=== PATIENT | female | born 1965 | race Caucasian/White ===

== ENCOUNTER 2023-08-25 05:34 | Emergency (ER) | payer MEDICARE, MEDICAID, SELFPAY ==
[2023-08-25 05:37] VITALS: BP 156/87; PULSE 89; RESP 16; TEMP 36.1; O2SAT 96; BMI 27.5
--- NOTE | 2023-08-25 05:53 | ED.EYEPROB ---
HPI - Eye Problem General Chief complaint: Eye Problems Stated complaint: something in right eye Time Seen by Provider: 08/25/23 05:52 History of Present Illness HPI Narrative: Patient is a 58-year-old woman up-to-date on her tetanus shot who comes in today after waking up and feeling a foreign body sensation in her right eye. She otherwise been sleeping fine and has not done any activities that would put her I and risk. She has no drainage or discharge. Her ocular acuity is normal. She has had no fevers no chills no night sweats no drainage no discharge. No surrounding swelling around her right eye. Related Data Allergies Allergy/AdvReac Type Severity Reaction Status Date / Time amoxicillin [From Augmentin] Allergy Unknown Verified 08/25/23 05:41 clavulanic acid Allergy Unknown Verified 08/25/23 05:41 [From Augmentin] Review of Systems Status of ROS: Reports: 10 or more systems reviewed and unremarkable except as noted in History and below PFSH PFS Social History Smoking Status: Never smoker How often do you have a drink containing alcohol: never AUDIT-C Alcohol total score: 0 Non-prescribed substance use: denies use service: No Exam Narrative: Exam Narrative: EXAM GENERAL: Patient appears comfortable and well. EYES: No scleral icterus. Mild injection noted of the right eye no other significant findings. Extraocular movements are intact PERRLA THYROID: no thyroid nodules or thyromegaly. LYMPH: No supraclavicular or cervical lymphadenopathy. SKIN: Visible skin seen during exam normal or with benign process only. EXT: No dependent lower extremity pedal edema. HEART: Regular rate and rhythm with no murmurs, rubs, or gallops. LUNGS: Clear to auscultation bilaterally with no crackles or wheezes. ABD: Soft, non tender, non distended. PSYCH: Good eye contact, speech is not pressured. Const: Vital Signs, click to edit/add: Vital Signs - 24 hr 08/25/23 05:37 Temperature 97.0 F L Pulse Rate [Left P ulse Oximeter] 89 Respiratory Rate 16 Blood Pressure [Ri ght Upper Arm] 156/87 H Pulse Oximetry 96 Oxygen Delivery Me thod Room Air Course Course ED Course: Patient seen and examined. Tetracaine placed in the right eye. No foreign bodies seen. Vital Signs Vital signs: Initial Vital Signs Temperature 97.0 F L 08/25/23 05:37 Temperature Source Temporal Artery Scan 08/25/23 05:37 Pulse Rate 89 08/25/23 05:37 Pulse Rhythm Regular 08/25/23 05:37 Respiratory Rate 16 08/25/23 05:37 Blood Pressure 156/87 H 08/25/23 05:37 Blood Pressure Mean 110 H 08/25/23 05:37 Blood Pressure Position Sitting 08/25/23 05:37 Pulse Oximetry 96 08/25/23 05:37 Oxygen Delivery Method Room Air 08/25/23 05:37 Vital Signs Temperature 97.0 F L 08/25/23 05:37 Pulse Rate 89 08/25/23 05:37 Respiratory Rate 16 08/25/23 05:37 Blood Pressure 156/87 H 08/25/23 05:37 Pulse Oximetry 96 08/25/23 05:37 Oxygen Delivery Method Room Air 08/25/23 05:37 Temperature 97.0 F L 08/25/23 05:37 Pulse Rate 89 08/25/23 05:37 Respiratory Rate 16 08/25/23 05:37 Blood Pressure 156/87 H 08/25/23 05:37 Pulse Oximetry 96 08/25/23 05:37 Oxygen Delivery Method Room Air 08/25/23 05:37 MDM - Eye Problem MDM Narrative Medical decision making narrative: Patient is a E 58-year-old woman who awoke feeling like there was a foreign body in her right eye. She comes into with normal exam with the exception of mild injection of the right eye. I do not see a foreign body. I did place tetracaine in her right eye with resolution of her symptoms. Differential diagnosis includes but not limited to foreign body corneal abrasion epi scleritis conjunctivitis. Discharge Plan Discharge Clinical Impression: Corneal abrasion Patient Disposition: Home, Self-Care Condition: Stable Instructions: Corneal Abrasion (ED) Activity Level: No Restrictions Discharge Diet: Regular Stand Alone Forms: MyHealth Info Instructions
== END 2023-08-25 06:04 | disposition home or self-care (01) ==
LOC: ED 05:59
PROVIDERS: Emergency Provider Internal Medicine
DX: S05.01XA Injury of conjunctiva and corneal abrasion without foreign body, right eye, initial encounter (principal)
CPT/HCPCS: 99283

== ENCOUNTER 2024-06-07 15:40 | Emergency (ER) | payer MEDICARE, SELFPAY ==
--- OUTSIDE RECORDS SUMMARY | 2024-06-07 15:43 | XMS_ITS | Encounter Summary ---
Author Organization [facility] Address [address] [place] [address] Care Team Providers Care Filler Shaker Name Role Phone Eileen Oliveira M.D. Primary Care Provider [phone] Reason for Referral * Outpatient (Routine) - Authorized Specialty Diagnoses / Procedures Referred By Steve chandler Referred To Contact Diagnoses Screening Mammogram Breast Cancer Procedures BI Breast Screening Bilateral with Tomosynthesis Eileen Oliveira M.D. [address] [place] [phone] Phone: tel: fax: [facility] Referral ID Status Reason Start Date Expiration Date V isits Requested Visits Authorized [id number] Authorized 05/27/2024 08/27/2025 1 1 Encounter Details Date Type Department Care Team (Late st Contact Info) Description 05/27/[address] [facility] Eileen Oliveira M.D. [address] [place] [phone] Screening Examination Diabetes Mellitus; Screening Mammogram Breast Cancer Social History Tobacco Use Types Packs/Day Years Used Date Smoking Tobacco: Former Cigarettes 0.3 11 0 02/19/1982 - 02/19/1993 Passive Smoke Exposure: Past Smokeless Tobacco: Never Passive Exposure Comments:G rew up with it Alcohol Use Standard Drinks/Week Comments Not Currently 3 (1 standard drink = 0.6 oz pur e alcohol) [facility] Utilities Answer Date Recorded In the past 12 months has th e electric, gas, oil, or water company threatened to shut off services in your home? No 04/12/2023 Humiliation, Afraid, Rape, and Kick questionnair e Answer Date Recorded Within the last year, have y ou been afraid of your partner or ex-partner? No 04/04/2022 Within the last year, have y ou been humiliated or emotionally abused in other ways by your partner or ex-partner? No Within the last year, have y ou been kicked, hit, slapped, or otherwise physically hurt by your partner or ex-partner? No 04/04/2022 Within the last year, have y ou been raped or forced to have any kind of sexual activity by your partner or ex-partner? No 04/04/2022 Social Connection and Isolat ion Panel [NHANES] Answer Date Recorded In a typical week, how many times do you talk on the phone with family, friends, or neighbors? Three times a week 04/04/2022 How often do you get togethe r with friends or relatives? Once a week 04/04/2022 How often do you attend chur or yarsanism services? More than 4 times per year 04/04/2022 Do you belong to any clubs o r organizations such as nondenominational groups, unions, fraternal or athletic groups, or school groups? No 04/04/2022 How often do you attend meet ings of the clubs or organizations you belong to? Never 04/04/2022 Are you , , di vorced, , never , or living with a partner? 04/04/2022 AUDIT-C Answer Date Recorded Q1: How often do you have a drink containing alc ohol? Monthly or less 04/04/2022 Q2: How many drinks containi ng alcohol do you have on a typical day when you are drinking? Patient declined 04/04/2022 Q3: How often do you have si x or more drinks on one occasion? Never 04/04/2022 Overall Financial Resource Strain (CARDIA) Answe r Date Recorded How hard is it for you to pa y for the very basics like food, housing, medical care, and heating? Somewhat hard 04/04/2022 PHQ-2 Answer Date Recorded PHQ-2 Score 0 04/17/2024 [facility] - Occupational Stress Questionnaire Answer Date Recorded Do you feel stress - tense, restless, nervous, or anxious, or unable to sleep at night because your mind is troubled all the time - these days? Only a little 04/04/2022 Exercise Vital Sign Answer Date Recorde d On average, how many days pe r week do you engage in moderate to strenuous exercise (like a brisk walk)? 0 days 04/11/2023 On average, how many minutes do you engage in exercise at this level? 0 min 04/11/2023 Hunger Vital Sign Answer Date Recorded Within the past 12 months, y ou worried that your food would run out before you got the money to buy more. Sometimes true Within the past 12 months, t he food you bought just didn't last and you didn't have money to get more. Sometimes true PRAPARE - Transportation Answer Date Re corded In the past 12 months, has l ack of transportation kept you from medical appointments or from getting medications? No 03/22 In the past 12 months, has l ack of transportation kept you from meetings, work, or from getting things needed for daily living? No 04/12/2023 Depression Answer Date Recor ded PHQ-9 Total Score (max 27) 6 02/17 Nutrition Answer Date Recorded On average, how many serving s of fruits and vegetables do you eat per day (serving size is equal to 1 cup or approximately the size of a tennis ball)? 3-5 04/11/2023 Dental Answer Date Recorded Dental: Regular Dentist No 02/22/19 Employment Answer Date Recorded Employment status Permanently disabled Housing Stability Answer Date Recorded What is your living situation today? I have a [facility] place to live 04/12/2023 Education Answer Date Recorded What is the highest level of school you have completed or the highest degree you have received? Bachelor's degree (e.g., BA, AB, BS) 05/20/2020 Comments No Sex and Gender Information Value Date Recorded Sex Assigned at Female 11/02/2020 2:57 PM CDT Legal Sex Female 3:18 PM CDT Gender Identity Female 05/20/2020 5:36 PM CDT Sexual Orientation Straight 05/20/2020 5: 36 PM CDT documented as of this encounter Plan of Treatment Upcoming Encounters Date Type Department Care Team (Latest Contact Info) Description 06/08/2024 10:45 AM CDT Clinical Communication Virtual Review in [place], [place] [address] [place] [phone] 06/09/2024 10:15 AM CDT Office Visit Division of Pain Medicine in [address] [phone] Krystle Pisano P.A.-C., M.S. [address] [place] [phone] 06/09/2024 11:00 AM CDT Procedure visit Division of Pain Medicine in [address] [phone] Eren Steve D.O. [address] [place] [phone] Mai Blue, Porter [address] [place] [phone] 07/15/2024 2:00 PM CDT Office Visit Department of Family Medicine, [facility], in [address] [phone] Eileen Oliveira M.D. [address] [place] [phone] Discharge Disposition: Home or Self Care 07/28/2024 9:00 AM CDT Virtual Visit Division of Pain Medicine in [address] [phone] Peter Ferguson M.D. [address] [place] [phone] Mai Blue R.N. [address] [place] [phone] Scheduled Orders Name Type Priority Associated Diagnoses Orde r Schedule Glucose, Fasting Lab Routine Screening Examination Diabetes Mellitus Expected: 06/10/2024, Expires: 11/13/2024 BI Breast Screening Bilateral with Tomosynthesis Imaging RAD - Routine (most inpatients and all outpatients) Screening Mammogram Breast Cancer Expected: 06/10/2024, Expires: 11/13/2024 documented as of this encounter Visit Diagnoses Diagnosis Screening Examination Diabetes Mellitus Screening Mammogram Breast Cancer documented in this encounter Additional Health Concerns Assessment Noted Time PHQ-9 Depression Total Score: 6 02/18/20 24 12:09 PM EMBROIDERY ASSISTANT documented as of this encounter Care Teams Filler Shaker Relationship Specialty Start Date End Date Eileen Oliveira M.D. [address] [place] [phone] PCP - General Family Medicine 09/04/23 documented as of this encounter
--- OUTSIDE RECORDS SUMMARY | 2024-06-07 15:43 | XMS_ITS | Clinical Summary ---
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 Co de Phone Number [facility] [address] [address], [facility] [place] [address] * HIV-1/-2 Ag and Ab Screen, Plasma (06/16/2020 11:08 AM CDT) HIV-1/-2 Ag and Ab Screen, P Negative Negative 06/16/2020 4:04 PM CDT [facility] Comment: Negative result does not rule out HIV infection. If exposure to HIV infection occurred <14 days ago, contact the laboratory to request addition of HIV-1 RNA detection / quantification test (HIVQN). Blood (Blood, Venous) 06/16/2020 11:08 AM CDT 06/16/2020 3:01 PM CDT Lance Gonzalez, B. Ch., M.S. LAB MICROBIOLOGY - BLOOD ORDERABLES Final Result [facility] [address] [place] [address] [facility] Dept. of Laboratory Medicine and Pathology [address] [place] [address] from Last 3 Months or Most Recently Relevant to Health Maintenance Insurance [facility] Address: [address] [address] Advance Directives For more information, please contact: [phone] * Full Code (Latest Code Status on File) Date Activated Date Inactivated Comments 01/28/2024 10:23 AM 01/28/2024 5:30 PM Question Answer Comments Full Code: Discussed Care Teams Critical Care Registered Nurse Relationship Specialty Start Date End Date Eileen Oliveira M.D. [address] [place] [phone] PCP - General Family Medicine 09/04/23
--- OUTSIDE RECORDS SUMMARY | 2024-06-07 15:43 | XMS_ITS | Encounter Summary ---
Author Organization [facility] Address [address] [place] [phone] Care Team Providers Care Speech Pathologist Assistant Name Role Phone Eileen Oliveira M.D. Primary Care Provider Encounter Details Date Type Department Care Team (Late st Contact Info) Description 05/01/2024 Orders Only Division of Rheumatology in [place], [place] [address] [place] [phone] Satinder Parrish M.D. [address] [place] [phone] Spondylitis Ankylosing (HCC) (Primary Dx) Social History Tobacco Use Types Packs/Day Years Used Date Smoking Tobacco: Former Cigarettes 0.3 11 0 02/19/1982 - 02/19/1993 Passive Smoke Exposure: Past Smokeless Tobacco: Never Passive Exposure Comments:G rew up with it Alcohol Use Standard Drinks/Week Comments Not Currently 3 (1 standard drink = 0.6 oz pur e alcohol) [facility] Utilities Answer Date Recorded In the past 12 months has e electric, gas, oil, or water company [...] week 04/04/2022 How often do you attend [facility] or judaism services? More than 4 times per year 04/04/2022 Do you belong to any clubs o r organizations such as lutheran groups, unions, fraternal or athletic groups, or [...] Answer Date Recorded PHQ-2 Score 0 04/17/2024 [facility] of Occupat ional Health - Occupational Stress Questionnaire Answer Date [...] your living situation today? I have a [facility] place to live 04/12/2023 Education Answer [...] AM CDT Clinical Communication Virtual Review in [place], [place] [address] [place] [phone] 06/09/2024 10:15 AM CDT Office Visit Division of Pain Medicine in [address] [phone] Krystle Pisano P.A.-C., M.S. [address] [place] [phone] 06/09/2024 11:00 AM CDT Procedure visit Division of Pain Medicine in [address] [phone] Eren Steve D.O. [address] [place] [phone] Mai Blue R.N. [address] [place] [phone] 07/15/2024 2:00 PM CDT Office Visit Department of Family Medicine, [facility] [place], in [address] [phone] Eileen Oliveira M.D. [address] [place] [phone] Discharge Disposition: Home or Self Care 07/28/2024 9:00 AM CDT Virtual Visit Division of Pain Medicine in [address] [phone] Peter Ferguson M.D. [address] [place] [phone] Mai Blue R.N. 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 [phone] [place] [phone] PCP - General Family Medicine 09/04/23 documented as of this encounter
[2024-06-07 15:49] VITALS: BP 147/89; PULSE 87; RESP 18; TEMP 36.7; O2SAT 97; BMI 28.3
--- NOTE | 2024-06-07 16:37 | ED.BACK ---
HPI - Back Pain/Injury General Date Seen: 06/07/24 Chief Complaint: Back Injury/Pain Stated Complaint: low back and hip pain Time Seen by Provider: 06/07/24 16:37 Source: patient, RN notes reviewed and old records reviewed Mode of arrival: ambulatory Limitations: no limitations History of Present Illness HPI Narrative: Luna is a very pleasant 59-year-old female with history of chronic back pain, nerve stimulator implantation who comes to the emergency room for evaluation regarding new back pain. Initially the back pain was 8/10 but after taking Windham has improved. Patient states that she was in her kitchen today simply twisted to the left and felt a sudden onset of pain in her right low back. It does radiate slightly into the buttock and very extreme superior posterior leg but otherwise has not caused any problems with ambulating. She has no numbness extending into the leg itself. No loss of bowel or bladder control. She is worried as this pain seems to be new for her. No fever or chills. She denies any falls or recent trauma. Patient has remote history of tobacco use. Does not think she has a history of osteoporosis. Related Data Allergies Allergy/AdvReac Type Severity Reaction Status Date / Time amoxicillin (From Augmentin) Allergy Unknown Verified 08/25/23 05:41 clavulanic acid (From Allergy Unknown Verified 08/25/23 05:41 Augmentin) Review of Systems Status of ROS: Reports: 6 or more systems reviewed and unremarkable except as noted in History and below [facility] Social History Smoking Status: Never smoker How often do you have a drink containing alcohol: never AUDIT-C Alcohol total score: 0 Non-prescribed substance use: denies use service: No Exam Narrative: Exam Narrative: Luna is alert and oriented. She is sitting forward in the bed. She is somewhat guarded in her movement. Mentating normally. External ears eyes nose clear. No respiratory distress. Examination of her lumbar spine shows 2 well-healed start scars 1st vertical scar in the lumbar region. She does have some point tenderness immediately superior to this area as well as over this posterior superior iliac spine. There are no skin changes noted. She also has palpable nerve stimulator implant on the left with a well-healed scar. Distally her sensation and motor is intact with good plantar and dorsal flexion at the ankle and great toe. No unusual edema or swelling. Const: Vital Signs, click to edit/add: Vital Signs - 24 hr 06/07/24 15:49 Temperature 98.0 F Pulse Rate [Pulse Oximeter] 87 Respiratory Rate 18 Blood Pressure [Ri ght Upper Arm] 147/89 H Pulse Oximetry 97 Oxygen Delivery Me thod Room Air Documenting provider has reviewed patient's vital signs: yes Course Course ED Course: Differential diagnosis includes but is not limited to muscular strain, disc protrusion, anxiety, compression fracture spontaneous. Given the fact that pain seems to be out of proportion to the injury itself I have elected to pursue x-rays of the lumbar spine and pelvis. Reevaluation(s) Reevaluation #1: X-rays are reassuring at this time without any evidence of acute fracture. Vital Signs Vital signs: Initial Vital Signs Temperature 98.0 F 06/07/24 15:49 Temperature Source Temporal Artery Scan 06/07/24 15:49 Pulse Rate 87 06/07/24 15:49 Pulse Rhythm Regular 06/07/24 15:49 Respiratory Rate 18 06/07/24 15:49 Blood Pressure 147/89 H 06/07/24 15:49 Blood Pressure Mean 108 H 06/07/24 15:49 Blood Pressure Position Supine 06/07/24 15:49 Pulse Oximetry 97 06/07/24 15:49 Oxygen Delivery Method Room Air 06/07/24 15:49 Vital Signs Temperature 98.0 F 06/07/24 15:49 Pulse Rate 87 06/07/24 15:49 Respiratory Rate 18 06/07/24 15:49 Blood Pressure 147/89 H 06/07/24 15:49 Pulse Oximetry 97 06/07/24 15:49 Oxygen Delivery Method Room Air 06/07/24 15:49 Temperature 98.0 F 06/07/24 15:49 Pulse Rate 87 06/07/24 15:49 Respiratory Rate 18 06/07/24 15:49 Blood Pressure 147/89 H 06/07/24 15:49 Pulse Oximetry 97 06/07/24 15:49 Oxygen Delivery Method Room Air 06/07/24 15:49 MDM - Back Pain/Injury MDM Narrative Medical decision making narrative: 1. Lumbar strain-patient noted to be improved and even better and relieved after knowing that there is no evidence of compression fracture or change in positioning of the nerve stimulator. Patient may use ibuprofen and Tylenol at home along with her Windham that she has. Requested she ice area of discomfort we have prepared and ice pack for her to take home. Recommend light activity. I recommend against bed rest but also against heavy lifting. She has worsening symptoms she will need to follow-up for further evaluation 2. Disposition-home at this time. Return for worsening symptoms and as needed. Medical Records Attestation: I reviewed the patient's medical records. Imaging Data Lumbar x-ray: Attestation: I have reviewed the pertinent imaging results. My impression: A Do not note any acute compression fractures Radiologist's impression: No acute fracture or malalignment. No scoliotic curvature. Normal lumbar lordosis is maintained. No listhesis. Vertebral body heights are maintained. Mild intervertebral disc height loss of a few lower thoracic intervertebral disc spaces. Likely mild multilevel facet arthropathy; otherwise, no significant spondylitic changes of the lumbar spine. No osteoarthritic degenerative changes of the sacroiliac or femoroacetabular joints. No suspicious osseous lesions. The soft tissues are without acute abnormality. Pelvic phleboliths. Battery pack in the subcutaneous fat of the left pelvis with bilateral lead tips seen at the L2-L3 intervertebral disc level. Impression: No acute fracture or malalignment. Pelvis x-ray: Attestation: I have reviewed the pertinent imaging results. Radiologist's impression: No acute fracture or malalignment. No scoliotic curvature. Normal lumbar lordosis is maintained. No listhesis. Vertebral body heights are maintained. Mild intervertebral disc height loss of a few lower thoracic intervertebral disc spaces. Likely mild multilevel facet arthropathy; otherwise, no significant spondylitic changes of the lumbar spine. No osteoarthritic degenerative changes of the sacroiliac or femoroacetabular joints. No suspicious osseous lesions. The soft tissues are without acute abnormality. Pelvic phleboliths. Battery pack in the subcutaneous fat of the left pelvis with bilateral lead tips seen at the L2-L3 intervertebral disc level. Impression: No acute fracture or malalignment. Discharge Plan Discharge Clinical Impression: Strain of lumbar region Patient Disposition: Home, Self-Care Condition: Improved Additional Instructions: Ice to low back and area of discomfort as needed. Light activity. Avoid heavy lifting but yet avoid laying around too much. Seek medical attention for worsening symptoms. Follow Up/Referrals: Provider,Not a Local [Primary Care Provider] - Stand Alone Forms: [employer] Info Instructions
--- NOTE | 2024-06-07 16:44 | CRLHL7_ITS ---
For Patients: As a result of the Century Cures Act, medical imaging exams and procedure reports are released immediately into your electronic medical record. You may view this report before your referring provider. If you have questions, please contact your health care provider. Indication: BACK AND RT HIP PAIN Technique: Three views of the lumbar spine and one view of the pelvis Comparison: None Findings: No acute fracture or malalignment. No scoliotic curvature. Normal lumbar lordosis is maintained. No listhesis. Vertebral body heights are maintained. Mild intervertebral disc height loss of a few lower thoracic intervertebral disc spaces. Likely mild multilevel facet arthropathy; otherwise, no significant spondylitic changes of the lumbar spine. No osteoarthritic degenerative changes of the sacroiliac or femoroacetabular joints. No suspicious osseous lesions. The soft tissues are without acute abnormality. Pelvic phleboliths. Battery pack in the subcutaneous fat of the left pelvis with bilateral lead tips seen at the L2-L3 intervertebral disc level. Impression: No acute fracture or malalignment. Dictated by Fuad Guardado MD @ 06/07/2024 5:28:12 PM (Electronically Signed)
--- OUTSIDE RECORDS SUMMARY | 2024-06-07 17:16 | XMS_ITS | Encounter Summary ---
Author Organization [facility] Address [address] [place] [address] Care Team Providers Care Automatic Bow Maker Machine Tender Name Role Phone Eileen Oliveira M.D. Primary Care Provider [phone] Reason for Referral * Outpatient (Routine) - Authorized Specialty Diagnoses / Procedures Referred By Steve chandler Referred To Contact Diagnoses Screening Mammogram Breast Cancer Procedures BI Breast Screening Bilateral with Tomosynthesis Eileen Oliveira M.D. [phone] [place] [phone] Phone: tel: fax: [facility] Referral ID Status Reason Start Date Expiration Date V isits Requested Visits Authorized [id number] Authorized 05/27/2024 08/27/2025 1 1 Encounter Details Date Type Department Care Team (Late st Contact Info) Description 05/27/2024 [facility] Eileen Oliveira M.D. [address] [place] [phone] Screening Examination Diabetes Mellitus; Screening Mammogram Breast Cancer Social History Tobacco Use Types Packs/Day Years Used Date Smoking Tobacco: Former Cigarettes 0.3 11 0 02/19/1982 - 02/19/1993 Passive Smoke Exposure: Past Smokeless Tobacco: Never Passive Exposure Comments:G rew up with it Alcohol Use Standard Drinks/Week Comments Not Currently 3 (1 standard drink = 0.6 oz pur e alcohol) [facility] Utilities Answer Date Recorded In the [...] How often do you attend chur or buddhist services? More than 4 times per year 04/04/2022 Do you belong to any clubs o r organizations such as yazdanism groups, unions, fraternal or athletic groups, or [...] Answer Date Recorded PHQ-2 Score 0 04/17/2024 [facility] of Occupat ional [facility] - Occupational Stress Questionnaire Answer Date Recorded [...] AM CDT Clinical Communication Virtual Review in [place], [place] 200 [place] [phone] 06/09/2024 10:15 AM CDT Office Visit Division of Pain Medicine in [address] [phone] Krystle Pisano P.A.-C., M.S. [address] [place] [phone] 06/09/2024 11:00 AM CDT Procedure visit Division of Pain Medicine in [address] [phone] Eren Steve D.O. [address] [place] [phone] Mai Blue, Porter [address] [place] [phone] 07/15/2024 2:00 PM CDT Office Visit Department of Family Medicine, [facility], in [address] [phone] Eileen Oliveira M.D. [address] [place] [phone] Discharge Disposition: Home or Self Care 07/28/2024 9:00 AM CDT Virtual Visit Division of Pain Medicine in [address] [phone] Peter Ferguson M.D. 200 [place] [phone] Mai Blue R.N. 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 [address] [place] [phone] PCP - General Family Medicine 09/04/23 documented as of this encounter
--- OUTSIDE RECORDS SUMMARY | 2024-06-07 17:16 | XMS_ITS | Clinical Summary ---
Author Organization [facility] Address [address] [place] [address] Care Team Providers Care Draw Furnace Tender Name Role Phone Eileen Oliveira M.D. Primary Care Provider Source Comments Patient records contain information from all sites at [facility]. For routine questions regarding patient records, call [phone] during business hours, M-F 8:00 AM - 5:00 PM Central Time. Record requests for emergency care only can be directed to [phone] at any time.[facility] Allergies Active Allergy Reactions Criticality Noted [...] Acute Pain. 18 tablet 01/28/2024 3:36 PM RATING OFFICER 4 Active cyclobenzaprin e (FlexeriL) 10 mg [...] response. 2 each 5 Active HYDROcodone-ac etaminophen (Creede) 7.5-325 mg per tabletIndicati ons:Chronic Pain/Nonacute Pain Take 1 tablet by mouth every 6 (six) hours as needed for pain Indication: Chronic Pain/Nonacute Pain. 60 tablet 5 Active HYDROcodone-ac etaminophen (Creede) 7.5-325 mg per tabletIndicati ons:Chronic Pain/Nonacute Pain Take 1 tablet by mouth every 6 (six) hours as needed for pain Indication: Chronic Pain/Nonacute Pain. 60 tablet 5 025 Discontin ued([facility]) Hospital, Clinic, or Other Facility Administered [...] medical regimen including Butrans, Flexeril, Voltaren, and Creede are helping immensely with her pain p.r.n.. [...] Previously followed with Dr. Will, gastroenterology in [facility]. On dexlansoprazole 60 mg twice daily for coexisting GERD. I had her sign a release of information request these outside records today. Gastroesophageal Reflux Disease Without Esophagi tis 05/16/2020 Overview (11/14/2020): Last Assessment & Plan: History of GERD and celiac disease. She has used multiple different PPIs without improvement, and under the care of her previous engineer first assistant from [place], Dr. Will, has had improvement with dexlansoprazole 60 mg twice daily. Her last upper endoscopy 11/2018 showed gastritis changes. We will continue her PPI, refills given today Spondylitis Ankylosing 05/16/2020 Overview (11/14/2020): Last Assessment & Plan: History of ankylosing spondylitis, diagnosed several years ago in [facility], followed with a wheel alignment mechanic, Dr. Alvares, as well as a pain specialist Dr. Orantes. She is using Cosentyx 150 mg every 14 days, which she states was started several months ago when she was living in [place], though she has not actually taken this for the last 2 months by her report. This has previously been filled by a specialty pharmacy in [place]. She seeks to establish care with rheumatology [...] by patient report. Prior to moving to [place] in February 2020, she was following with a wheel alignment mechanic, Dr. Alvares and a pain clinical review specialist, Dr. Orantes in [facility], and was previously on Ultram 3 times [...] had any narcotic pain medications filled in [place] per [place] prescription drug monitoring. She states she is [...] Department Care Team Description 05/27/2024 Orders Only [facility] PCP TH MNT Eileen Oliveira M.D. Screening Examination Diabetes Mellitus; Screening Mammogram Breast Cancer 05/01/2024 Orders Only Division of Rheumatology in [place], [place] [address] [place] [phone] Satinder Parrish M.D. Spondylitis Ankylosing (HCC) (Primary Dx) 04/17/2024 2:00 PM RATING OFFICER Office Visit Department of Family Medicine, [facility], in [address] [phone] Eileen Oliveira M.D. Opioid Moderate Or Severe Use Disorder (Dependence) Uncomplicated (HCC) (Primary Dx); Pain Low Back Chronic; Spondylitis Ankylosing (HCC); History Of Falling; Asthma Mild Intermittent (HCC); Elevated Blood Pressure Discharge Disposition: Home or Self Care 2024 Refill Department of Family Medicine, [facility], in [address] [phone] Lia Ko APRN, C.N.P. Med Refill 03/11/2024 1:30 PM RATING OFFICER Procedure visit Division of Pain Medicine in [place], [place] [address] [place] [phone] Isiah Vargas M.D. Kamala Wang, R.N. Pain [...] drink = 0.6 oz pur e alcohol) [facility] Utilities Answer Date Recorded In the past 12 months has e Wer[employer], gas, oil, or water [employer] threatened to shut off services in your [...] How often do you attend chur or buddhism services? More than 4 times per year 04/04/2022 Do you belong to any clubs o r organizations such as adventist groups, unions, fraternal or athletic groups, or [...] Answer Date Recorded PHQ-2 Score 0 04/17/2024 [facility] - Occupational Stress Questionnaire Answer Date [...] your living situation today? I [facility] place to live 04/12/2023 Education Answer [...] Comments Blood Pressure 147/85 04/17/2024 2:04 PM RATING OFFICER Pulse 102 04/17/2024 2:04 PM RATING OFFICER Temperature 36.2 C (97.2 F) 04/17/2024 2:01 PM RATING OFFICER Respiratory Rate 17 01/28/2024 2:15 PM RATING OFFICER Oxygen Saturation 96% 01/28/2024 2:15 PM RATING OFFICER Inhaled Oxygen Concentration - - Weight 80.4 kg (177 lb 4 oz) 04/17/2024 2:01 PM RATING OFFICER Height 166 cm (5' 5.35) 09/23/2023 9:28 AM CDT Body Mass Index 29.18 09/23/2023 9:28 AM CDT Plan of Treatment Upcoming Encounters Date Type Department Care Team (Latest Contact Info) Description 06/08/2024 10:45 AM CDT Clinical Communication Virtual Review in [place], [place] [address] [place] [phone] 06/09/2024 10:15 AM CDT Office Visit Division of Pain Medicine in [address] [phone] Krystle Pisano P.A.-C., M.S. [address] [place] [phone] 06/09/2024 11:00 AM CDT Procedure visit Division of Pain Medicine in [address] [phone] Eren Steve D.O. [address] [place] [phone] Mai Blue RKory [address] [place] [phone] 07/15/2024 2:00 PM CDT Office Visit Department of Family Medicine, [facility], in [address] [phone] Eileen Oliveira M.D. [address] [place] [phone] Discharge Disposition: Home or Self Care 07/28/2024 9:00 AM CDT Virtual Visit Division of Pain Medicine in [address] [phone] Peter Ferguson M.D. [address] [place] [phone] Mai Blue RKory [address] [place] [phone] Health Maintenance Due Date Last Done Comments [...] this topic Medical Devices Implanted Type Area Freight Loader Device Identifier Shelf Expiration Date Model / Serial / Lot Mesh Or Patch Mesh or Patch Bladder Description:Bladder Sling Percutaneous Lead Implanted:Qty: 1 on 01/28/2024 by Samuel Robledo M.D. at [facility] Rojas/Gonda Stimulator Other Back [facility] [id number] 03/21/2026 [id number] / [id number] Ipg Implanted:Qty: 1 on 01/28/2024 by Samuel Robledo M.D. at [facility] Rojas/Gonda Stimulator Other Back [facility] Medical [id number] 06/25/2025 [id number] / [id number] / [id number] Percutaneous Lead Implanted:Qty: 1 on 01/28/2024 by Samuel Robledo M.D. at [facility] Rojas/Gonda Stimulator Other Back [facility] Medical [id number] 03/21/2026 [id number] / [id number] / Variax 2 Wrist: Volar Distal Radius Plate, Standard, 56mm Implanted:Qty: 1 on 01/17/2023 by Rakesh Benitez M.D. at [facility] Wrist Implant Right: Radius [place] [id number] / N/A / N/A Variax 2 Wrist: 2.0mm Locking Peg, 16mm Implanted:Qty: 1 on 01/17/2023 by Rakesh Benitez M.D. at [facility] Wrist Implant Right: Radius Elisha [id number] / N/A / N/A Variax 2 Wrist: 2.0mm Locking Peg, 18mm Implanted:Qty: 3 on 01/17/2023 by Rakesh Benitez M.D. at [facility] Wrist Implant Right: Radius [place] [id number] / N/A / N/A Variax 2 Wrist: 2.7mm Locking Screw, 14mm Implanted:Qty: 1 on 01/17/2023 by Rakesh Benitez M.D. at [facility] Wrist Implant Right: Radius Elisha [id number] / N/A / N/A Variax 2 Wrist: 2.7mm Non-Locking Screw, 14mm Implanted:Qty: 2 on 01/17/2023 by Rakesh Benitez M.D. at [facility] Wrist Implant Right: Radius Elisha [id number] / N/A / N/A Variax 2 Wrist: 2.7mm Non-Locking Screw, 16mm Implanted:Qty: 1 on 01/17/2023 by Rakesh Benitez M.D. at [facility] Wrist Implant Right: Radius [place] [id number] / N/A / N/A Procedures Procedure Name Priority Date/Time Associated Diagnosis Comments HEPATITIS B SURFACE ANTIGEN Routine 03/15/2023 11:47 AM RATING OFFICER Spondylitis Ankylosing (HCC) BI BREAST SCREENING BILATERAL WITH TOMOSYNTHESIS RAD - Routine (most inpatients and all outpatients) 11/06/2022 2:14 PM CDT Screening Mammogram Breast Cancer HPV WITH GENOTYPING, PCR, THINPREP Routine 03/01/2021 2:31 PM RATING OFFICER GLUCOSE, FASTING, S/P Routine 01/16/2021 10:57 AM RATING OFFICER Screening Examination Diabetes Mellitus LIPID PANEL, S Routine 01/16/2021 10:57 AM RATING OFFICER Screening Lipid HIV-1/-2 AG AND AB SCREEN, PLASMA Routine 06/16/2020 11:08 AM CDT Spondylitis Ankylosing (HCC) from Last 3 Months or Most Recently Relevant to Health Maintenance Results * Hepatitis B Surface Antigen (03/15/2023 11:47 AM RATING OFFICER) HBs Antigen, S Negative Negative 03/15/2023 3:55 PM RATING OFFICER [facility] Blood (Blood, Venous) 03/15/2023 11:47 AM RATING OFFICER 03/15/2023 2:55 PM RATING OFFICER us Satinder Parrish M.D. LAB MICROBIOLOGY - BLOOD ORD ERABLES Final Result [facility] [address] [place] [address] [facility] [address] [place] [address] * BI Breast Screening Bilateral with Tomosynthesis [...] with Genotyping, PCR, ThinPrep (03/01/2021 2:31 PM RATING OFFICER) Specimen Source Thin Prep Vial, Cervix/Endoc ervix 03/06/2021 2:37 PM RATING OFFICER DTL HPV High Risk type 16, PCR Negative Negative 03/06/2021 2:37 PM RATING OFFICER DTL HPV High Risk type 18, PCR Negative Negative 03/06/2021 2:37 PM RATING OFFICER DTL HPV other High Risk types, PCR Negative Negative 03/06/2021 2:37 PM RATING OFFICER DTL Comment: The following Other High Risk HPV types were not detected: 31, 33, 35, 39, 45, 51, 52, 56, 58, 59, 66, and 68 This test was ordered in the context of a [facility] SENIOR LEAD PROJECT MANAGER Cytology case; this result should be interpreted within the context of the SENIOR LEAD PROJECT MANAGER cytology report. Varies 03/01/2021 2:31 PM RATING OFFICER 03/01/2021 4:32 PM RATING OFFICER us Sue Larose M.D. LAB MICROBIOLOGY - GENERAL O RDERABLES Final Result [facility] [address] [place] [address], [facility] [address] [place] [address] * (ABNORMAL) Lipid Panel (01/16/2021 10:57 AM RATING OFFICER) Cholesterol, Total 202(H) mg/dL 2020 8:41 PM RATING OFFICER [facility] Comment: ----REFERENCE VALUE---- Desirable: < 200 Borderline high: 200 - 239 High: > or = 240 Triglycerides 88 mg/dL 01/16/2021 8:41 PM RATING OFFICER [facility] Comment: ----REFERENCE VALUE---- Normal: <150 Borderline high: 150-199 High: 200-499 Very high: > or =500 Cholesterol, HDL 61 >=50 mg/dL 01/17/20 8:41 PM RATING OFFICER [facility] Calculated LDL 123 mg/dL 01/16/2021 8:41 PM RATING OFFICER [facility] Comment: ----REFERENCE VALUE---- Desirable: <100 mg/dL Above Desirable: 100-129 mg/dL Borderline High: 130-159 mg/dL High: 160-189 mg/dL Very High: >=190 mg/dL Cholesterol, Non-HDL, Calculated 141 mg/dL 01/16/2021 8:41 PM RATING OFFICER [facility] Comment: ----REFERENCE VALUE---- Desirable: <130 Above Desirable: 130-159 Borderline high: 160-189 High: 190-219 Very high: > or =220 Blood (Blood, Venous) 01/16/2021 10:57 AM RATING OFFICER 01/16/2021 7:42 PM RATING OFFICER Sue Larose M.D. LAB BLOOD ADD-ON Final Resul t [facility] [address] [place] [address], [facility] [place] [address] * Glucose, Fasting (01/16/2021 10:57 AM RATING OFFICER) Glucose, P 95 70 - 100 mg/dL 01/16/2021 8:23 PM RATING OFFICER [facility] Last Intake 15 hr 01/16/2021 7:39 PM RATING OFFICER [facility] Blood (Blood, Venous) 01/16/2021 10:57 AM RATING OFFICER 01/16/2021 7:39 PM RATING OFFICER Sue Larose M.D. LAB BLOOD NON ADD-ON Final R esult Performing Organization Address City/[facility]/ZIP Co de Phone Number [facility] [address] [address], [facility] [employer] [employer] in [place] [address] * HIV-1/-2 Ag and Ab Screen, Plasma (06/16/2020 11:08 AM CDT) HIV-1/-2 Ag and Ab Screen, P Negative Negative 06/16/2020 4:04 PM CDT [facility] Comment: Negative result does not rule out HIV infection. If exposure to HIV infection occurred <14 days ago, contact the laboratory to request addition of HIV-1 RNA detection / quantification test (HIVQN). Blood (Blood, Venous) 06/16/2020 11:08 AM CDT 06/16/2020 3:01 PM CDT Lance Gonzalez, B. Ch., M.S. LAB MICROBIOLOGY - BLOOD ORDERABLES Final Result [facility] [address] [place] [address] [facility] Dept. of Laboratory Medicine and Pathology [address] [place] [address] from Last 3 Months or Most Recently Relevant to Health Maintenance Insurance [facility] Address: [address] [address] Advance Directives For more information, please contact: [phone] * Full Code (Latest Code Status on File) Date Activated Date Inactivated Comments 01/28/2024 10:23 AM 01/28/2024 5:30 PM Question Answer Comments Full Code: Discussed Care Teams Draw Furnace Tender Relationship Specialty Start Date End Date Eileen Oliveira M.D. [address] [place] [phone] PCP - General Family Medicine 09/04/23
--- OUTSIDE RECORDS SUMMARY | 2024-06-07 17:16 | XMS_ITS | Encounter Summary ---
Author Organization [facility] Address [address] [place] [address] Care Team Providers Care Civil Structural Designer Name Role Phone Eileen Oliveira M.D. Primary Care Provider [phone] Encounter Details Date Type Department Care Team (Late st Contact Info) Description 05/01/2024 Orders Only Division of Rheumatology in [place], [place] [address] [place] [phone] Satinder Parrish M.D. [address] [place] [phone] Spondylitis Ankylosing (HCC) (Primary Dx) Social History Tobacco Use Types Packs/Day Years Used Date Smoking Tobacco: Former Cigarettes 0.3 11 0 02/19/1982 - 02/19/1993 Passive Smoke Exposure: Past Smokeless Tobacco: Never Passive Exposure Comments:G rew up with it Alcohol Use Standard Drinks/Week Comments Not Currently 3 (1 standard drink = 0.6 oz pur e alcohol) [facility] Utilities Answer Date Recorded In the [...] week 04/04/2022 How often do you attend [facility] or [facility] services? More than 4 times per year 04/04/2022 Do you belong to any clubs o r organizations such as anabaptism groups, unions, fraternal or athletic groups, or [...] Answer Date Recorded PHQ-2 Score 0 04/17/2024 [facility] [place] of Occupat ional Health - Occupational Stress [...] your living situation today? I have a [facility] place to live 04/12/2023 Education Answer [...] AM CDT Clinical Communication Virtual Review in [place], [place] [address] [place] [phone] 06/09/2024 10:15 AM CDT Office Visit Division of Pain Medicine in [address] [phone] Krystle Pisano P.A.-C., M.S. [address] [place] [phone] 06/09/2024 11:00 AM CDT Procedure visit Division of Pain Medicine in [address] [phone] Eren Steve D.O. [address] [place] [phone] Mai Blue R.N. [address] [place] [phone] 07/15/2024 2:00 PM CDT Office Visit Department of Family Medicine, [facility], in [address] [phone] Eileen Oliveira M.D. [address] [place] [phone] Discharge Disposition: Home or Self Care 07/28/2024 9:00 AM CDT Virtual Visit Division of Pain Medicine in [address] [phone] Peter Ferguson M.D. [address] [place] [phone] Mai Blue R.N. [address] [place] [phone] documented as of this encounter Visit Diagnoses Diagnosis Spondylitis Ankylosing (HCC)- Primary documented in this encounter Additional Health Concerns Assessment Noted Time PHQ-9 Depression Total Score: 6 02/18/20 24 12:09 PM HOME APPLIANCE WASHING MACHINE MECHANIC documented as of this encounter Care Teams Civil Structural Designer Relationship Specialty Start Date End Date Eileen Oliveira M.D. [id number] [place] [phone] PCP - General Family Medicine 09/04/23 documented as of this encounter
== END 2024-06-07 17:42 | disposition home or self-care (01) ==
PROVIDERS: Emergency Provider Family Medicine
DX: S39.012A Strain of muscle, fascia and tendon of lower back, initial encounter (principal); X50.9XXA Other and unspecified overexertion or strenuous movements or postures, initial encounter
CPT/HCPCS: 72100; 72170; 99284